=== PATIENT | male | born 1965 | race Caucasian/White ===

== ENCOUNTER 2017-03-31 19:35 | Inpatient (IN) | payer OTHER ==
[~2017-03-31] VITALS: Ht 162.6 cm; Wt 63.6 kg
[2017-03-31 21:10] LABS: MEAN CORPUSCULAR HEMOGLOBIN 33.6 pg (27.0-33.0); MEAN CORPUSCULAR VOLUME 93.3 fl (80.0-96.0); RED CELL DISTRIBUTION WIDTH 12.4 % (11.5-14.5); WHITE BLOOD COUNT 7.8 K/mm3 (4.0-10.0)
[2017-03-31 21:33] LABS: METHADONE URINE NEGATIVE (NEGATIVE)
[2017-03-31 21:43] LABS: ALBUMIN 4.4 GM/DL (3.2-5.2); ALBUMIN/GLOBULIN RATIO 1.47 (1.00-1.93); ALKALINE PHOSPHATASE 88 U/L (45-117); ALT/SGPT 22 U/L (12-78); ANION GAP 6 MEQ/L (8-16); AST/SGOT 20 U/L (15-37); BILIRUBIN,DIRECT 0.1 MG/DL (0.0-0.2); BILIRUBIN,TOTAL 0.6 MG/DL (0.2-1.0); BLOOD UREA NITROGEN 17 MG/DL (7-18); CALCIUM LEVEL 9.3 MG/DL (8.5-10.1); CARBON DIOXIDE LEVEL 30 MEQ/L (21-32); CHLORIDE LEVEL 106 MEQ/L (98-107); CREATININE FOR GFR 1.27 MG/DL (0.70-1.30); GLOMERULAR FILTRATION RATE > 60.0 (>56); GLUCOSE, FASTING 99 MG/DL (70-105); POTASSIUM SERUM 4.7 MEQ/L (3.5-5.1); SODIUM LEVEL 142 MEQ/L (136-145); TOTAL PROTEIN 7.4 GM/DL (6.4-8.2)
[2017-03-31] MEDS ORDERED: ALBU17IN INH (23:45)
[2017-03-31] MEDS ORDERED: SYMB16INH INH (23:45)
[2017-04-01] MEDS ORDERED: ACETAMINOPHEN TAB 650MG DOSE (2X325MG) PO PRN (03:00)
[2017-04-01] MEDS ORDERED: MOM 30ML SUSPENSION UDC PO PRN (03:00)
[2017-04-01] MEDS ORDERED: MAALOX 30 ML SUSP *UDC PO PRN (03:00)
[2017-04-01] MEDS ORDERED: traZODone 50 MG TAB PO PRN (03:00)
[2017-04-01] MEDS ORDERED: ALBUTEROL 90 MCG/ACT 8GM HFA INHALER INH PRN (09:30)
--- NOTE | 2017-04-01 09:35 | HPEPDOC ---
Medical History and Physical Date of Admission Mar 31, 2017 History and Physical PCP: None ATTENDING: Dr. Joseluis Vanegas HPI: 51 yo M admitted to [facility] for unspecified depressive disorder, being medically examined today. Patient states he has had chronic low back pain for several years. He states this is at his baseline. He denies radiating pain down the legs. No weakness, numbness, or tingling in lower extremities. He states he does not use any medications for the pain. He uses marijuana daily for pain control. He states he does not feel he needs to see pain management. Denies any fevers, chills, weakness, fatigue, ROSADO, CP, SOB, cough, palpitations , abdominal pain, N/V/D or changes in bowel or bladder habits. PMHx: Chronic low back pain/degenerative disc disease COPD Substance use PSHX: Denies SOCHX: Res[facility] in: [facility] Marital Status: Kids: None Employment: Unemployed Tobacco use: One to 2 packs per day ETOH: Denies Illicit Drugs: Marijuana daily. Denies any other substances. IV Drug Use: Denies Tattoos done unprofessionally: 2 FAMHX: Mother: , COPD Father: , [place] Siblings: One brother one sister Alive, well Children: Denies Unexpected deaths due to medical reasons: None. ROS: As noted in HPI, otherwise 11pt ROS of systems reviewed and unremarkable. PE: GEN: 51 yo M, appears stated age. Thin appearing. No acute distress. Alert and oriented x 3. Pleasant, interactive. HEENT: Normocephalic, atraumatic. Pupils are equal, round, and reactive to light. Extraocular movements are intact. No nystagmus appreciated. Sclera are nonicteric. Conjunctiva without injection. Nose midline. Nasal turbinates without bogginess. EACs both patent BL. TMs both visualized and menendez with good cone of light, no bulging or erythema. No facial asymmetry. Moist mucous membranes. Dentition poor. Pharynx pink and moist, no cobblestoning. Neck supple , trachea midline. No lymphadenopathy or thyromegaly appreciated. CHEST: Regular rate and rhythm, +S1, +S2 LUNGS: Clear to auscultation bilaterally. No wheezes, rales, or rhonchi. Breathing appears symmetric and easy. Patient is speaking in full sentences. No accessory muscle use. ABD: Round, soft, non-tender, non-distended. +Bowel sounds throughout. No rebound or guarding. No costovertebral angle tenderness. EXT: Pulses 2+ bilaterally dorsalis pedis and radial. No lower extremity edema appreciated. SKIN: [place], dry, warm. Capillary refill <2sec. No rashes. NEURO: Alert and oriented x 3. Cranial nerves III-XII are intact. No focal deficits appreciated. EKG: pending. A&P: 51 yo M admitted to [facility] for unspecified depressive disorder 1. Psych. Plan per Psychiatry. Obtain baseline EKG to assure the safety of psychiatric medications as they can prolong the QT interval. 2. Nicotine dependence. Patch available. 3. COPD. Continue Symbicort 2 puffs twice a day. Continue albuterol HFA 2 puffs every 4 hours as needed. 4. Follow up. No Primary Care Provider. Will attempt to establish PCP on discharge. 5. Substance use. Per psychiatry. 6. Chronic low back pain. Patient states his pain is at his baseline level. He states this is chronic. Continue Tylenol 650 mg every 6 hours as needed. Patient does not wish to be placed on any additional medication for his pain. He does not wish to be evaluated through pain management. Outpatient follow-up. 7. History of tattoo done unprofessionally. Patient declines HIV/hepatitis screening at this time. 8. Poor dentition. Patient is not having any issues at this time. Arrange dental provider appointment at discharge. 9. Staff members present throughout exam. Vital Signs Vital Signs Date Time Temp Pulse Resp B/P (MAP) Pulse Ox O2 Delivery O2 Flow Rate FiO2 03/31/17 23:23 98.6 77 18 130/86 (101) 98 Room Air Laboratory Data Labs 24H Laboratory Tests 2 03/31/17 20:58: Anion Gap 6L, Glomerular Filtration Rate > 60.0, Calcium Level 9.3, Aspartate Amino Transf (AST/SGOT) 20, Alanine Aminotransferase (ALT/SGPT) 22, Alkaline Phosphatase 88, Total Bilirubin 0.6, Direct Bilirubin 0.1, Total Protein 7.4, Albumin 4.4, Albumin/Globulin Ratio 1.47, Thyroid Stimulating Hormone (TSH) 1.850, Salicylates Level 3.5L, Acetaminophen Level < 2.0L, Ethyl Alcohol Level < 0.003 03/31/17 20:59: Urine Amphetamines Screen NEGATIVE, Urine Benzodiazepines Screen NEGATIVE, Urine Opiates Screen NEGATIVE, Urine Methadone Screen NEGATIVE, Urine Barbiturates Screen NEGATIVE, Urine Phencyclidine Screen NEGATIVE, Urine Cocaine Metabolite Screen POSITIVEH, Urine Cannabinoids Screen POSITIVEH CBC/BMP Laboratory Tests 03/31/17 20:58 Red Blood Count 4.39, Mean Corpuscular Volume 93.3, Mean Corpuscular Hemoglobin 33.6 H, Mean Corpuscular Hemoglobin Concent 36.0, Red Cell Distribution Width 12.4 Home Medications Scheduled Budesonide/Formoterol (Symbicort 160-4.5 Mcg/Act) 60 Puff/Inhaler Aers, 2 PUFF INH BID Scheduled PRN Albuterol Sulfate (Ventolin Hfa) 200 Puff/8 Gm Aers, 2 PUFF INH Q4H PRN for SHORTNESS OF BREATH Allergies Coded Allergies: No Known Allergies (Unverified , 03/31/17) Emi Romero Apr 01, 2017 09:35
[2017-04-01] MEDS: SYMBICORT 160/4.5MCG INHALER 6GM INH SCH ×2 (11:25→21:22)
--- NOTE | 2017-04-01 14:56 | MHHPE ---
DATE OF ADMISSION: 03/31/2017 DATE OF DICTATION: 04/01/2017 This 52-year-old male states that he has been under a great deal of stress due to his problems with his landlord. He states that he has difficulties with temper and attitude. He states that in the past he was diagnosed with anxiety and bipolar disorder. He is not taking any medications. He is under counseling care by Brian Rascon. He states that he should not be here. Admission was initiated by him being upset with his landlord. He states that he was braiding a line in his backyard and "bitching." His was concerned because she saw on the table he had written something about the only peace is found in . She was concerned that he was putting together a hangman's noose. The patient states that he is trying to move out his house with his and he is on DSS. His has a mental disorder and does take assistance. He states that he had instructed his to withhold rent to their landlord due to the difficulties at his home at [address] [place] [address] and there are concerns about the lack of "building up to code" at the apartment caused his distress. DRUG USE: The patient states that he uses occasional marijuana. MEDICATIONS: The patient states that he has been on BuSpar in the past but was unable to take it. ALCOHOL HISTORY: The patient states that he drinks a few beers. PSYCHIATRIC HISTORY: The patient states that he is treated by Brian Rascon. SUICIDE HISTORY: The patient states that he has never made a suicide attempt. LEGAL HISTORY: The patient was charged with burglary, felony, and was in long-term from 1988 to 1990. MARITAL HISTORY: He states that he has known his for over 9 years, but they have been 9 years. STRESSORS: The patient states that he lost his mother 5 months ago. MENTAL STATUS EXAMINATION: The patient is circumferential in speech and rapid. His thought process is tangential. There are no loose associations. Judgment and insight are poor. He is fully oriented. Recent and remote memory intact. Attention and concentration are intact. No disturbance of language. He has a full fund of knowledge. Mood is irritable. Affect is congruent. IMPRESSION: Bipolar disorder. PLAN: Further information will be gotten from Brian Rascon and the patient's . The patient's insight into bipolar disorder and discussion of past treatment of bipolar disorder seems to not be adequate and we may be unable to engage him in any type of treatment. Further information at this time will be sought after. The patient is presently only taking Symbicort for asthma and albuterol. No other medications at this time. [facility]
[2017-04-01 18:33] VITALS: BP 105/67
--- NOTE | 2017-04-01 19:02 | ECGEPIP ---
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
[2017-04-02 06:50] VITALS: BP 124/74
[2017-04-02] MEDS: SYMBICORT 160/4.5MCG INHALER 6GM INH SCH ×2 (06:55→23:01)
--- NOTE | 2017-04-02 12:27 | MHIPN ---
DATE: 04/02/2017 I met with Kade Ignacio today, as well as meeting with financial planner who spoke with his . Mr Ignacio agrees that he needs more thorough care than he has been getting and also states that his previous use of BuSpar did help him when he had temper difficulties. We have some concerns that the patient is mildly hypomanic and this initiated our request for him to seek outpatient care here in [place]. His girlfriend apparently tells financial planner that he has a history of noncompliance. MENTAL STATUS EXAMINATION: Speech is mildly rapid. Thought process is mildly circumferential. No loose associations. No psychotic thoughts. Judgment and insight are fair. Fully oriented. Recent and remote memory intact. Attention and concentration are normal. No disturbance of language. Full fund of knowledge. Mood is good. Affect is pleasant. Patient admitted that he had minimized how upset he was concerning his present living situation and relationship with [facility]. Patient has placed now on buspirone 20 mg twice a day. DIAGNOSIS: Rule out bipolar II. Generalized anxiety disorder. Marijuana abuse.
[2017-04-02] MEDS: busPIRone 10 MG TAB PO SCH ×2 (13:18→23:00)
[2017-04-02 18:00] VITALS: BP 114/73
[2017-04-03 06:00] VITALS: BP 126/67
[2017-04-03] MEDS ORDERED: BUSP10TA PO (08:12)
[2017-04-03] MEDS: busPIRone 10 MG TAB PO SCH (08:53)
[2017-04-03] MEDS: SYMBICORT 160/4.5MCG INHALER 6GM INH SCH (08:55)
--- NOTE | 2017-04-03 12:21 | MHDS ---
DATE OF ADMISSION: 03/31/2017 DATE OF DISCHARGE: 04/03/2017 This 51-year-old male status he has been under a great deal of stress due to his problems with his landlord. He states he has had difficulties with his temper and attitude. He states in the past he was diagnosed with anxiety and bipolar disorder. He has not taken any medications. He is under counseling care by Brian Rascon that he should not be here. His admission was initiated by him being upset with his landlord and his girlfriend calling due to the fact that he had a note stating that was the only peace. He also was putting together and braiding what appeared to be a hangman's noose. Drug use was noted to be occasional marijuana. MEDICATION HISTORY: The patient states he has been BuSpar in the past but was unable to take it due to financial reasons. PATIENT'S ALCOHOL HISTORY: The patient states he drinks a few beers. PSYCHIATRIC HISTORY: The patient is treated by Brian Rascon in counseling. SUICIDE HISTORY: The patient states he has never made a suicide attempt. 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 The patient states he has been for 9 years. His is a former patient here. Laboratory examinations revealed a slightly low hematocrit of 40.9, MCH 33.6. Serum chemistry was unremarkable and all within normal limits. Toxicology screen was positive for cocaine and cannabinoids. COURSE ON THE UNIT: Patient was cooperative, hyper-talkative and there was some concern that he was demonstrating hypomania. He was started, at his request, on buspirone. He was discharged to outpatient care and encouraged to followup due to at history of being noncompliant. Followup care was arranged by discharge planning at [facility] and suggested that he also look at addiction counseling. DISCHARGE DIAGNOSES: Anxiety disorder. Substance abuse. DISCHARGE MEDICATIONS: Asthma medications: Albuterol inhaler, Symbicort. buspirone 20 mg twice a day. MTDD
[2017-04-03] MEDS ORDERED: SYMB16INH INH (12:34)
== END 2017-04-03 13:15 | disposition home or self-care (01) | DRG 756 ==
LOC: M ED 19:35 → M ED INP 21:53 → M PSY 23:48 → M ED INP 04-01 10:08 → M PSY 04-01 10:10
PROVIDERS: ADMIT Psychiatry & Neurology Psychiatry; ATTEND Psychiatry & Neurology Child & Adolescent Psychiatry
DX: F41.9 Anxiety disorder, unspecified (principal); J44.9 Chronic obstructive pulmonary disease, unspecified; R45.851 Suicidal ideations; F12.10 Cannabis abuse, uncomplicated; M54.5 Low back pain; F17.210 Nicotine dependence, cigarettes, uncomplicated; Z79.899 Other long term (current) drug therapy

== ENCOUNTER 2019-05-03 21:11 | Emergency (ER) | payer OTHER ==
[~2019-05-03] VITALS: Ht 167.6 cm; Wt 61.4 kg
[~2019-05-03 21:11] MED LIST: ALBU17IN INH; BUSP10TA PO; SYMB16INH INH
[2019-05-03] MEDS ORDERED: ASPIRIN 81 MG CHEW TABLET PO ONE (22:00)
[2019-05-03 22:05] LABS: BASO # 0.1 10^3/uL (0.0-0.2); BASO % 0.4 % (0.0-1.0); EOS # 0.2 10^3/uL (0.0-0.5); EOS % 1.6 % (0.0-3.0); HEMATOCRIT 40.7 % (42.0-52.0); HEMOGLOBIN 13.6 g/dl (13.5-17.5); LYMPH # 3.7 10^3/uL (1.5-5.0); LYMPH % 32.3 % (24.0-44.0); MEAN CORPUSCULAR HEMOGLOBIN 31.8 pg (27.0-33.0); MEAN CORPUSCULAR HGB CONC 33.4 g/dl (32.0-36.5); MEAN CORPUSCULAR VOLUME 95.1 fl (80.0-96.0); MONO # 0.8 10^3/uL (0.0-0.8); MONO % 7.3 % (0.0-5.0); NEUTROPHILS # 6.7 10^3/uL (1.5-8.5); NEUTROPHILS % 58.1 % (36.0-66.0); PLATELET COUNT, AUTOMATED 329 10^3/uL (150-450); RED BLOOD COUNT 4.28 10^6/uL (4.30-6.10); WHITE BLOOD COUNT 11.5 10^3/uL (4.0-10.0)
[2019-05-03 22:12] LABS: BLOOD UREA NITROGEN 13 MG/DL (7-18); CALCIUM LEVEL 9.6 MG/DL (8.5-10.1); CARBON DIOXIDE LEVEL 34 MEQ/L (21-32); CHLORIDE LEVEL 104 MEQ/L (98-107); CK-MB VALUE MASS 1.6 NG/ML (<3.6); CPK CREATINE PHOSPHOKINASE 207 U/L (39-308); CREATININE FOR GFR 1.08 MG/DL (0.70-1.30); GLOMERULAR FILTRATION RATE > 60.0 (>56); GLUCOSE, FASTING 73 MG/DL (70-100); MB/CK RELATIVE INDEX 0.77 (< OR =4); SODIUM LEVEL 142 MEQ/L (136-145); TROPONIN I < 0.02 NG/ML (< 0.10)
[2019-05-04 00:07] LABS: CK-MB VALUE MASS 1.4 NG/ML (<3.6); CPK CREATINE PHOSPHOKINASE 209 U/L (39-308); MB/CK RELATIVE INDEX 0.67 (< OR =4); TROPONIN I < 0.02 NG/ML (< 0.10)
[2019-05-04] MEDS ORDERED: ALBU83IN (00:22)
[2019-05-04] MEDS ORDERED: NICOINH (00:22)
[2019-05-04] MEDS ORDERED: STIO1AER INH (00:22)
[2019-05-04] MEDS ORDERED: BUPR150T5 (00:22)
[2019-05-04 00:30] VITALS: BP 94/56
--- NOTE | 2019-05-04 00:59 | ECGEPIP ---
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
--- NOTE | 2019-05-04 03:26 | REP ---
Clinical: Acute chest pain . Comparison: None . Findings: The mediastinum and cardiac silhouette are stable and within normal limits for portable technique. The lung elizabeth demonstrate emphysematous changes without acute consolidation, effusion, or pneumothorax. Skeletal structures are intact. Impression: Chronic emphysematous changes. No acute cardiopulmonary process appreciated. Electronically Signed by Gonzalo Rain MD 05/04/2019 03:17 A
== END 2019-05-04 00:46 | disposition home or self-care (01) ==
LOC: M ED 21:11
DX: F41.1 Generalized anxiety disorder (principal); I45.19 Other right bundle-branch block; J44.9 Chronic obstructive pulmonary disease, unspecified; Z79.899 Other long term (current) drug therapy; F17.210 Nicotine dependence, cigarettes, uncomplicated

== ENCOUNTER → 2019-05-31 | Outpatient (CLI) | payer OTHER ==
[~2019-05-31] MED LIST changes: +ALBU83IN; +BUPR150T5; +NICOINH; +STIO1AER INH
--- NOTE | 2019-05-31 19:46 | REP ---
CT chest without contrast: Low-dose screening exam. History: Nicotine dependence. Comparison is made with portable chest x-ray May 03, 2019. No other chest imaging is available. CT findings: The lungs are rather hyperinflated overall consistent with some degree of COPD. There is mild bronchiectasis in the left upper lobe anterior segment and in the segmental and subsegmental bronchi in the lingula. There is some inflammatory fibrosis versus atelectasis in the lingula and in a small zone anteriorly and medially in the left lower lobe. There are scattered calcified and noncalcified pulmonary nodules in the lung elizabeth bilaterally. The noncalcified nodules measure up to 5 mm in greatest diameter. There are emphysematous changes most pronounced in the upper lobes. No endobronchial lesion is seen. Study is otherwise unremarkable. Impression: Hyperinflation COPD. Areas of bronchiectasis and inflammatory fibrosis and/or atelectasis. Scattered calcified and noncalcified pulmonary nodules. Largest of the noncalcified nodules is 5 mm. Lung BIRADS category II benign appearance. Repeat screening CT study recommended in 1 year. Electronically Signed by Rip Peterson MD 06/01/2019 09:47 A
== END ==
LOC: M RAD 14:40
PROVIDERS: ATTEND Internal Medicine Pulmonary Disease
DX: F17.200 Nicotine dependence, unspecified, uncomplicated (principal)

== ENCOUNTER 2019-06-12 15:48 | Emergency (ER) | payer OTHER ==
[~2019-06-12] VITALS: Ht 170.2 cm; Wt 59.1 kg
[2019-06-12 15:49] VITALS: BP 121/65
[2019-06-12] MEDS ORDERED: ARNU1INH (15:56)
[2019-06-12] MEDS ORDERED: KETOROLAC 30 MG/ML VIAL (J1885) IM ONE (16:45)
[2019-06-12] MEDS ORDERED: NEUR300C PO (16:46)
[2019-06-12] MEDS ORDERED: [UNRECOGNIZED DRUG - SUPPLY] TOP (16:48)
== END 2019-06-12 17:06 | disposition home or self-care (01) ==
LOC: M ED 15:48
DX: M54.5 Low back pain (principal); M54.30 Sciatica, unspecified side; M51.9 Unspecified thoracic, thoracolumbar and lumbosacral intervertebral disc disorder; J45.909 Unspecified asthma, uncomplicated; J44.9 Chronic obstructive pulmonary disease, unspecified; F17.200 Nicotine dependence, unspecified, uncomplicated; Z79.899 Other long term (current) drug therapy
CPT/HCPCS: 96372; 99282; J1885

== ENCOUNTER 2019-07-08 22:41 | Emergency (ER) | payer OTHER ==
[~2019-07-08] VITALS: Ht 165.1 cm; Wt 59.1 kg
[~2019-07-08 22:41] MED LIST changes: +ARNU1INH; +NEUR300C PO; +[UNRECOGNIZED DRUG - SUPPLY] TOP
[2019-07-09 00:38] VITALS: BP 133/75
== END 2019-07-09 00:39 | disposition home or self-care (01) ==
LOC: M ED 22:41
DX: F43.0 Acute stress reaction (principal); J44.9 Chronic obstructive pulmonary disease, unspecified; F17.200 Nicotine dependence, unspecified, uncomplicated; Z79.899 Other long term (current) drug therapy; Z79.51 Long term (current) use of inhaled steroids

== ENCOUNTER → 2020-11-05 | Outpatient (CLI) | payer OTHER ==
[~2020-11-05] MED LIST changes: +ISOVUE-370 76% 100ML VIAL As Ordered ONE
--- NOTE | 2020-11-05 16:02 | REP ---
INDICATION: OTHER NON SPECIFIC ABNORMAL FINDING OF LUNG FIELD. COMPARISON: 06/18/2020 and 05/31/2019 both low-dose screening CT examinations of the lungs TECHNIQUE: Standard helical technique after the intravenous administration of 100 cc Isovue 370 FINDINGS: There is right hilar adenopathy. There is subcarinal adenopathy. There is no justine left hilar adenopathy. There are no pleural or pericardial effusions. The imaged upper abdomen is within normal limits. The imaged osseous structures are within normal limits. Evaluation of the lung elizabeth shows lung field hyperexpansion with numerable asymmetric and nodular densities 2 numerous to count or individually assess. There is a dominant nodule in the medial aspect of the anterior segment of the right upper lobe which abuts the anterior mediastinum in today measures approximately 1.3 cm. Previously, this measured approximately 9 mm in its greatest dimension. The area of pleural irregularity and thickening with spiculations seen in the left posterior basal lower lobe region has gotten thicker and larger. In the right upper lobe the somewhat spiculated area near the pleura laterally is stable. Due to the complexity of the findings I cannot rule out the possibility of new 3 and 4 mm size nodules. There is cylindrical bronchiectasis throughout. IMPRESSION: Markedly advanced chronic changes with nodules as described above. Neoplastic and/or chronic inflammatory changes. Consider CT-PET if clinically relevant. <Electronically signed by Rohith Gimenez > 11/05/20 [id number]
== END ==
LOC: M RAD 14:32
PROVIDERS: ATTEND Internal Medicine Pulmonary Disease
DX: R91.8 Other nonspecific abnormal finding of lung field (principal)
CPT/HCPCS: 71260; Q9967

== ENCOUNTER → 2020-11-21 | Outpatient (CLI) | payer OTHER ==
[~2020-11-21] MED LIST changes: -ISOVUE-370 76% 100ML VIAL As Ordered ONE
[2020-11-21 16:55] LABS: BASO # 0.1 10^3/uL (0.0-0.2); BASO % 0.6 % (0.0-1.0); EOS # 0.3 10^3/uL (0.0-0.5); EOS % 2.9 % (0.0-3.0); HEMATOCRIT 45.1 % (42.0-52.0); HEMOGLOBIN 14.5 g/dl (13.5-17.5); LYMPH # 2.9 10^3/uL (1.5-5.0); LYMPH % 27.2 % (24.0-44.0); MEAN CORPUSCULAR HEMOGLOBIN 30.8 pg (27.0-33.0); MEAN CORPUSCULAR HGB CONC 32.2 g/dl (32.0-36.5); MEAN CORPUSCULAR VOLUME 95.8 fl (80.0-96.0); MONO # 0.9 10^3/uL (0.0-0.8); MONO % 8.1 % (2.0-8.0); NEUTROPHILS # 6.4 10^3/uL (1.5-8.5); NEUTROPHILS % 60.7 % (36.0-66.0); PLATELET COUNT, AUTOMATED 290 10^3/uL (150-450); RED BLOOD COUNT 4.71 10^6/uL (4.30-6.10); WHITE BLOOD COUNT 10.5 10^3/uL (4.0-10.0)
[2020-11-21 17:06] LABS: INR 0.97; PROTHROMBIN TIME 13.1 SECONDS (12.5-14.3)
[2020-11-21 17:07] LABS: PARTIAL THROMBOPLASTIN TIME 30.8 SECONDS (24.2-38.5)
[2020-11-21 17:22] LABS: BLOOD UREA NITROGEN 18 MG/DL (7-18); CALCIUM LEVEL 9.3 MG/DL (8.5-10.1); CARBON DIOXIDE LEVEL 27 MEQ/L (21-32); CHLORIDE LEVEL 107 MEQ/L (98-107); CREATININE FOR GFR 0.82 MG/DL (0.70-1.30); GLOMERULAR FILTRATION RATE > 60.0 (>56); GLUCOSE, FASTING 81 MG/DL (70-100); POTASSIUM SERUM 4.4 MEQ/L (3.5-5.1); SODIUM LEVEL 140 MEQ/L (136-145)
== END ==
LOC: M PLALAB 15:30
PROVIDERS: ATTEND Internal Medicine Pulmonary Disease
DX: J44.9 Chronic obstructive pulmonary disease, unspecified (principal)

== ENCOUNTER → 2020-11-21 | Outpatient (REF) | payer OTHER | LOC: M LAB REF 16:49 | PROVIDERS: ATTEND Internal Medicine Pulmonary Disease | DX: J44.9 Chronic obstructive pulmonary disease, unspecified (principal) ==

== ENCOUNTER → 2020-11-30 | Outpatient (CLI) | payer OTHER | LOC: M LABSMTC 13:21 | PROVIDERS: ATTEND Anesthesiology | DX: Z01.818 Encounter for other preprocedural examination (principal); Z11.52 Encounter for screening for COVID-19 ==

== ENCOUNTER 2020-12-05 06:36 | Day surgery (SDC) | payer OTHER ==
[~2020-12-05] VITALS: Ht 170.2 cm; Wt 51.3 kg
[~2020-12-05 06:36] MED LIST changes: +ALBUTEROL SULFATE 2.5 MG/0.5 ML INH NEB SOLN INH ONE; +LIDOCAINE 1% MDV 20ML VIAL SQ PRN; +LIDOCAINE 4% INJ 5ML AMP INH ONE; +LR 1,000 ML IV ONE
[2020-12-05] MEDS ORDERED: AZIT-12 PO (07:09)
[2020-12-05] MEDS ORDERED: MUCI600T31 PO (07:09)
[2020-12-05] MEDS ORDERED: AMOX500T2 PO (07:09)
[2020-12-05] MEDS ORDERED: EPINEPHrine 1MG/10ML SYRINGE 1.5IN As Ordered ONE (07:17)
[2020-12-05] MEDS ORDERED: LIDOCAINE 1% SDV 30ML VIAL As Ordered ONE (07:17)
[2020-12-05] MEDS ORDERED: CETACAINE SPRAY 5GM As Ordered ONE (07:17)
[2020-12-05] MEDS ORDERED: THROMBIN SOLN 5,000 UNITS VIAL As Ordered ONE (07:17)
[2020-12-05] MEDS ORDERED: propofoL 200 MG/20 ML VIAL As Ordered ONE ×2 (07:18→07:21)
[2020-12-05] MEDS ORDERED: ROCURONIUM BROMIDE 50 MG/5 ML VIAL As Ordered ONE ×2 (07:18→07:21)
[2020-12-05] MEDS ORDERED: ONDANSETRON 4MG/2ML VIAL As Ordered ONE ×2 (07:18→07:22)
[2020-12-05] MEDS ORDERED: LIDOCAINE 2% 100MG/5ML SDV (FOR ANES.) As Ordered ONE ×2 (07:18→07:21)
[2020-12-05] MEDS ORDERED: dexameTHASONE 4 MG/ML 1ML VIAL (J1100 PER 1MG) As Ordered ONE ×2 (07:18→07:22)
[2020-12-05] MEDS ORDERED: fentaNYL 100 MCG/2 ML INJECTION (J3010) As Ordered ONE ×2 (07:19→07:21)
[2020-12-05] MEDS ORDERED: MIDAZOLAM INJ 2MG/2ML VIAL (J2250 PER 1MG) As Ordered ONE ×2 (07:19→07:21)
[2020-12-05] MEDS ORDERED: REMIFENTANIL 1MG 3ML VIAL As Ordered ONE (07:21)
[2020-12-05] MEDS ORDERED: METOCLOPRAMIDE INJ 10MG/2ML VIAL (J2765 PER 1) As Ordered ONE (07:22)
[2020-12-05] MEDS ORDERED: PHENYLephrine 500MCG 5ML (100MCG/ML) SYRINGE As Ordered ONE (08:03)
[2020-12-05] MEDS ORDERED: ACETAMINOPHEN 1000MG 100ML IV BTL (OFIRMEV) (J0131 PER 10MG) As Ordered ONE (08:07)
[2020-12-05] MEDS ORDERED: SUGAMMADEX SODIUM 500 MG/5 ML VIAL (BRIDION) As Ordered ONE (08:27)
[2020-12-05] MEDS ORDERED: oxyCODONE 5MG TAB PO PRN (09:15)
[2020-12-05] MEDS ORDERED: ONDANSETRON 4MG/2ML VIAL IV PRN (09:15)
[2020-12-05] MEDS ORDERED: METOCLOPRAMIDE INJ 10MG/2ML VIAL (J2765 PER 1) IV PRN (09:15)
[2020-12-05] MEDS ORDERED: LR 1,000 ML IV SCH (09:15)
[2020-12-05] MEDS ORDERED: fentaNYL 100 MCG/2 ML INJECTION (J3010) IV PRN (09:15)
--- NOTE | 2020-12-05 09:28 | ROOR ---
Patient Name: Kade Ignacio Procedure Date: 12/05/2020 7:28 AM Date of : 1965 Admit Type: Outpatient Age: 55 Note Status: Finalized Attending MD: Loni Manuel MD Procedure: Bronchoscopy Indications: Abnormal CT scan of chest, Diffuse parenchymal lung disease, Hilar/mediastinal abnormality of the right side Providers: Loni Manuel MD (Doctor) Referring MD: None Requesting Physician: Medicines: Lidocaine 4% via nebulizer with Albuterol 2.5 mg, Cetacaine topical, Epinephrine 1 mg/10 mL topical 2 mL, General Anesthesia Complications: No immediate complications. Estimated blood loss: Minimal Procedure: Pre-Anesthesia Assessment: - Prior to the procedure, a History and Physical was performed, and patient medications and allergies were reviewed. The patient's tolerance of previous anesthesia was also reviewed. The risks and benefits of the procedure and the sedation options and risks were discussed with the patient. All questions were answered, and informed consent was obtained. Prior Anticoagulants: The patient has taken no previous anticoagulant or antiplatelet agents. ASA Grade Assessment: II - A patient with mild systemic disease. After reviewing the risks and benefits, the patient was deemed in satisfactory condition to undergo the procedure. - Patient identification and proposed procedure were verified prior to the procedure by the physician, the nurse, the anesthesiologist, the binding printer and the counter intelligence technician. The procedure was verified in the procedure room. The Bronchoscope was introduced through the mouth, via the endotracheal tube (the patient was intubated for the procedure) and advanced to the tracheobronchial tree of both lungs. The procedure was accomplished without difficulty. The patient tolerated the procedure well. Findings: The endotracheal tube is in good position. The visualized portion of the trachea is of normal caliber. The paula is sharp. The tracheobronchial tree was examined to at least the first subsegmental level. Bronchial mucosa and anatomy are normal; there was mucosal pitting and webbing noted, few areas of anthracotic pigmentation. There are no endobronchial lesions, there were some thick white/clear mucoid secretions noted throughout. Percepta brush test was performed prior to start of the robotic bronchoscopy. Rpbotic Electromagnetic navigation bronchoscopy was performed. The CT scan was used for planning purposes. A virtual bronchoscopic image was generated using the planning software. The target in the posterior segment of the right upper lobe was marked. A nodule approx 5-6 mm in size was found and a pathway was created. After a complete airway exam, the Robotic EM navigation phase was then begun to locate the target lesion(s). Brushings of edematous mucosa were obtained in the distal subsegmental branch of the posterior segment of the right upper lobe leading to the target lesion, with a cytology brush and sent for routine cytology. Positioning centrally (in relation to the lesion) was confirmed using the Olympus radial probe US catheter. Transbronchial biopsies of a nodule were performed in the posterior segment of the right upper lobe using forceps and sent for histopathology examination. The procedure was guided by fluoroscopy. Transbronchial biopsy technique was selected because the sampling site was not visible endoscopically. Fluoroscopy guided transbronchial brushings of a nodule were obtained in the posterior segment of the right upper lobe with a micro brush and sent for aerobic culture and anaerobic culture. Transbronchial brushing technique was selected because the sampling site was not accessible using standard endoscopic (bronchoscopic) techniques. Bronchoalveolar lavage was performed in the RUL posterior segment (B2) of the lung and sent for cell count, bacterial culture, and fungal & AFB analysis. The return was blood-tinged. Mucous plugs were present in the return fluid. An endobronchial ultrasound endoscope was utilized in order to assist with fine needle aspiration in the subcarinal area and in the right hilum. Transbronchial needle aspirations of lymph nodes were performed in the subcarinal area and in the right hilum using an Olympus EBUS-TBNA 21 gauge needle and sent for routine cytology. The procedure was guided by ultrasound. Transbronchial needle aspiration technique was selected because the sampling site was not visible endoscopically. Impression: - Abnormal CT scan of chest - Diffuse parenchymal lung disease - Hilar/mediastinal abnormality of the right side - The airway examination was normal. - Electromagnetic navigation bronchoscopy was performed. - Brushings were obtained. - Transbronchial lung biopsies were performed. - Transbronchial brushings were obtained. - Bronchoalveolar lavage was performed. - Endobronchial ultrasound was performed. - A transbronchial needle aspiration was performed. Recommendation: - Await test results. Procedure Code(s): --- Professional --- 65428, Bronchoscopy, rigid or flexible, including fluoroscopic guidance, when performed; with transbronchial needle aspiration biopsy(s), trachea, main stem and/or lobar bronchus(i) 23569, Bronchoscopy, rigid or flexible, including fluoroscopic guidance, when performed; with transbronchial lung biopsy(s), single lobe 28806, Bronchoscopy, rigid or flexible, including fluoroscopic guidance, when performed; with bronchial alveolar lavage 83115, Bronchoscopy, rigid or flexible, including fluoroscopic guidance, when performed; with brushing or protected brushings 51663, Bronchoscopy, rigid or flexible, including fluoroscopic guidance, when performed; with computer-assisted, image-guided navigation (List separately in addition to code for primary procedure[s]) 19374, Bronchoscopy, rigid or flexible, including fluoroscopic guidance, when performed; with transendoscopic endobronchial ultrasound (EBUS) during bronchoscopic diagnostic or therapeutic intervention(s) for peripheral lesion(s) (List separately in addition to code for primary procedure[s]) CPT copyright 2019 [employer]. All rights reserved. The codes documented in this report are preliminary and upon senior talent management consultant review may be revised to meet current compliance requirements. Loni Manuel MD 12/05/2020 9:27:58 AM Number of Addenda: 0 Note Initiated On: 12/05/2020 7:28 AM
--- NOTE | 2020-12-05 09:42 | REP ---
INDICATION: POST BRONCH COMPARISON: 05/03/2019 TECHNIQUE: Portable AP view of the chest FINDINGS: Mediastinum and cardiac silhouette are normal. Diffuse increased interstitial changes suggesting elements of scattered fibrosis and scarring. No obvious focal consolidation, effusion, or pneumothorax. IMPRESSION: Chronic interstitial changes and fibrosis. No obvious acute consolidation, effusion, or pneumothorax. <Electronically signed by Gonzalo Rain > 12/05/20 0938
[2020-12-05 10:09] VITALS: BP 92/54
--- NOTE | 2020-12-05 11:31 | REP ---
INDICATION: OEC FLUOROSCOPY ENB. COMPARISON: Comparison chest CT study November 05, 2020.. TECHNIQUE: Twenty two views. 2 minutes 9 seconds of fluoroscopy time is reported. FINDINGS: A sequence of 22 last image hold fluoroscopically obtained spot radiographs of the chest document bronchoscopic manipulation. IMPRESSION: Procedural imaging. <Electronically signed by Buster Peterson > 12/05/20 1120
--- NOTE | 2020-12-06 16:56 | ECGEPIP ---
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
== END 2020-12-05 10:32 | disposition home or self-care (01) ==
LOC: M SDC 06:36
PROVIDERS: ATTEND Internal Medicine Pulmonary Disease
DX: J98.4 Other disorders of lung (principal); J44.9 Chronic obstructive pulmonary disease, unspecified; F43.10 Post-traumatic stress disorder, unspecified; F17.218 Nicotine dependence, cigarettes, with other nicotine-induced disorders; F31.9 Bipolar disorder, unspecified; F25.9 Schizoaffective disorder, unspecified; Z79.51 Long term (current) use of inhaled steroids; Z91.013 Allergy to seafood; F12.10 Cannabis abuse, uncomplicated
CPT/HCPCS: 31623; 31624; 31627; 31628; 31629; 31654; 71045; 76000; 87070; 87071; 87102; 87116; 87205; 87206; 88104; 88173; 88305; 93005; J0131; J1100; J2250; J2370; J2405; J3010; S2900

== ENCOUNTER 2021-02-26 17:51 | Emergency (ER) | payer OTHER ==
[~2021-02-26] VITALS: Ht 167.6 cm; Wt 59.1 kg
[~2021-02-26 17:51] MED LIST changes: -ALBUTEROL SULFATE 2.5 MG/0.5 ML INH NEB SOLN INH ONE; +AMOX500T2 PO; +AZIT-12 PO; -LIDOCAINE 1% MDV 20ML VIAL SQ PRN; -LIDOCAINE 4% INJ 5ML AMP INH ONE; -LR 1,000 ML IV ONE; +MUCI600T31 PO
[2021-02-26 17:52] VITALS: BP 102/74
== END 2021-02-26 18:30 | disposition left against medical advice (07) ==
LOC: M ED 17:51
DX: Z53.21 Procedure and treatment not carried out due to patient leaving prior to being seen by health care provider (principal)

== ENCOUNTER → 2021-04-08 | Outpatient (CLI) | payer OTHER ==
--- NOTE | 2021-04-08 15:58 | REP ---
INDICATION: ABN FINDINGS OF LUNG FIELD COMPARISON: Multiple the latest 11/05/2020 TECHNIQUE: Standard helical technique without intravenous contrast FINDINGS: The mediastinum and pulmonary dorina are unchanged. There is adenopathy status quo. No pleural or pericardial effusions have developed. There is no significant change in appearance of the imaged upper abdomen or imaged osseous structures. Evaluation of the lung elizabeht again shows marked scattered reticulonodular densities and asymmetric densities. A large new asymmetric mass has developed in the right upper lobe which measures approximately 3.7 by 2.7 cm. Just inferior to this there is an additional pleural base mass density which measures 4.3 by 2.5 cm. There is partial atelectasis of the lingula seen in conjunction with marked varicoid bronchiectasis and patchy asymmetric lingular densities all representing a change from the prior exam. Scattered areas of cylindrical and varicoid bronchiectatic change is again noted. IMPRESSION: 1. There are advanced chronic lung field changes as described above. 2. New lingular finding as described above suspicious for partial obstructive atelectatic change. 3. New large right upper lobe masses as described above close follow-up is recommended. 4. Adenopathy. 5. Other chronic changes as described above. <Electronically signed by Rohith Gimenez > 04/08/21 [id number]
== END ==
LOC: M PLAIMG 14:35
PROVIDERS: ATTEND Internal Medicine Pulmonary Disease
DX: R91.8 Other nonspecific abnormal finding of lung field (principal)

== ENCOUNTER → 2021-04-11 | Outpatient (REF) | payer OTHER | LOC: M LAB REF 16:58 | PROVIDERS: ATTEND Internal Medicine Pulmonary Disease | DX: R91.8 Other nonspecific abnormal finding of lung field (principal) ==

== ENCOUNTER → 2021-05-22 | Outpatient (CLI) | payer OTHER ==
--- NOTE | 2021-05-22 16:23 | REP ---
INDICATION: ABN FINDINGS OF LUNG FIELD. COMPARISON: CT 04/08/2021, 11/05/2020; low-dose CT 06/18/2020, 05/31/2019. TECHNIQUE: Noncontrast scanning through the chest with coronal and sagittal reconstructions provided. FINDINGS: Compared to 6 weeks ago the hyperinflation and advanced bullous emphysematous changes upper lung zones again seen with further consolidation and infiltrate in the medial aspect of the left upper lung zone suggesting lingular chronic atelectasis and infiltrate cylindrical and saccular bronchiectatic changes are seen there with more confluent consolidation. Confluent irregular masslike densities in the posterior aspect of the right upper lobe are unchanged there is a nodule in the anteromedial aspect right upper lobe unchanged abutting the mediastinal pleura and measuring up to 12 mm on image 31 numerous scattered nodules in the 3-5 mm range seen throughout that the right upper lobe. There are similar fibrotic and inflammatory nodular changes in the superior segment of the right lower lobe there are small nodules in the posterior basal segment of the lower lobe the largest about 5.7 mm unchanged some dependent atelectatic and fibrotic changes in the deep sulcus right lower lobe. Pleural thickening and stranding from the pleura posteriorly in the left lower lobe in deep sulcus again noted and unchanged. Scattered small subpleural nodules in the left lateral base in the 2-3 mm range are again seen. Diffuse cylindrical bronchiectatic changes in the lower lung zones. No effusion. The heart is not enlarged. The aorta has some calcifications but no aneurysm. 11 mm prevascular space node on image 47. There is an 8.6 mm AP window node on image 49. Sub cm right paratracheal and prevascular space nodes are present 13 mm subcarinal node is suggested. Some hilar nodes are present. These are all unchanged no pathologic sized axillary or supraclavicular adenopathy. Bone windows show spine with no new or acute finding. Sternum, manubrium, clavicles, scapulae, AC and glenohumeral joints, humeral heads and visualized ribs grossly intact. The upper abdomen seen in limited fashion without acute finding. IMPRESSION: 1. Advanced COPD and emphysematous changes with cylindrical and saccular bronchiectatic change, progressive collapse and inflammatory consolidation in the medial aspect left upper lung zone likely the lingula, compared to the study 6 weeks ago. There are subpleural nodules both lungs, irregular masslike densities in the right upper lobe which are unchanged and other scattered nodules in the right upper and lower lobe stable. No effusion. 2. No cardiomegaly, pericardial thickening or pericardial effusion. There are some mediastinal nodes of pathologic size which may be reactive. These are unchanged. 3. Bones intact. <Electronically signed by Haris Jewell > 05/22/21 [id number]
== END ==
LOC: M PLAIMG 14:20
PROVIDERS: ATTEND Internal Medicine Pulmonary Disease
DX: R91.8 Other nonspecific abnormal finding of lung field (principal)

== ENCOUNTER 2021-06-24 14:22 | Inpatient (IN) | payer OTHER ==
[~2021-06-24] VITALS: Ht 165.1 cm; Wt 49.0 kg
[2021-06-24] MEDS ORDERED: NS 1,000 ML IV SCH (14:25)
[2021-06-24 15:20] LABS: BASO % 0.1 % (0.0-1.0); EOS % 0.1 % (0.0-3.0); HEMATOCRIT 42.6 % (42.0-52.0); HEMOGLOBIN 14.4 g/dl (13.5-17.5); LYMPH # 0.9 10^3/uL (1.5-5.0); LYMPH % 11.5 % (24.0-44.0); MEAN CORPUSCULAR HEMOGLOBIN 31.9 pg (27.0-33.0); MEAN CORPUSCULAR HGB CONC 33.8 g/dl (32.0-36.5); MEAN CORPUSCULAR VOLUME 94.5 fl (80.0-96.0); MONO # 0.8 10^3/uL (0.0-0.8); MONO % 9.3 % (2.0-8.0); NEUTROPHILS # 6.5 10^3/uL (1.5-8.5); NEUTROPHILS % 78.9 % (36.0-66.0); PLATELET COUNT, AUTOMATED 266 10^3/uL (150-450); RED BLOOD COUNT 4.51 10^6/uL (4.30-6.10); WHITE BLOOD COUNT 8.2 10^3/uL (4.0-10.0)
[2021-06-24 15:40] LABS: ALBUMIN 3.1 GM/DL (3.2-5.2); ALT/SGPT 15 U/L (12-78); BILIRUBIN,DIRECT 0.1 MG/DL (0.0-0.2); BILIRUBIN,TOTAL 0.6 MG/DL (0.2-1.0); LIPASE 26 U/L (73-393); TOTAL PROTEIN 6.5 GM/DL (6.4-8.2)
[2021-06-24 16:22] LABS: BLOOD UREA NITROGEN 28 MG/DL (7-18); CALCIUM LEVEL 9.2 MG/DL (8.5-10.1); CARBON DIOXIDE LEVEL 26 MEQ/L (21-32); CHLORIDE LEVEL 103 MEQ/L (98-107); GLOMERULAR FILTRATION RATE > 60.0 (>56); GLUCOSE, FASTING 116 MG/DL (70-100); POTASSIUM SERUM 4.5 MEQ/L (3.5-5.1); SODIUM LEVEL 137 MEQ/L (136-145)
[2021-06-24] MEDS ORDERED: ISOVUE-370 76% 100ML VIAL As Ordered ONE (16:38)
[2021-06-24] MEDS ORDERED: ARNU1INH3 INH (18:10)
[2021-06-24] MEDS ORDERED: HOME MED LIST COMPLETE! XX SCH (18:10)
[2021-06-24] MEDS ORDERED: ALBU8.5H INH (18:10)
[2021-06-24 18:30] LABS: RSV AMPLIFICATION NEGATIVE (NEGATIVE)
[2021-06-24] MEDS: MORPHINE 2 MG/ML 1ML VIAL (J2270) IV PRN (19:58)
[2021-06-24] MEDS: NS 1,000 ML IV SCH (19:58)
[2021-06-24] MEDS: CIPROFLOXACIN 400 MG in IV 1 EA IV SCH (21:00)
[2021-06-24] MEDS: metroNIDAZOLE 500 MG in IV 1 EA IV SCH (21:41)
[2021-06-24 23:52] VITALS: BP 122/79
[2021-06-25] MEDS: MORPHINE 2 MG/ML 1ML VIAL (J2270) IV PRN ×4 (03:16→17:51)
[2021-06-25] MEDS: NS 1,000 ML IV SCH ×3 (05:10→22:45)
[2021-06-25] MEDS: metroNIDAZOLE 500 MG in IV 1 EA IV SCH (05:14)
[2021-06-25 06:30] VITALS: BP 108/69
[2021-06-25] MEDS: VANCOMYCIN ORAL SOL 250MG/5ML ORAL SYRINGE PO SCH ×4 (06:30→23:43)
[2021-06-25 08:04] LABS: HEMATOCRIT 33.4 % (42.0-52.0); MEAN CORPUSCULAR HEMOGLOBIN 30.8 pg (27.0-33.0); MEAN CORPUSCULAR HGB CONC 33.2 g/dl (32.0-36.5); MEAN CORPUSCULAR VOLUME 92.8 fl (80.0-96.0); PLATELET COUNT, AUTOMATED 209 10^3/uL (150-450)
[2021-06-25 08:11] LABS: HEMOGLOBIN 11.1 g/dl (13.5-17.5)
[2021-06-25 08:14] LABS: INR 1.22; PROTHROMBIN TIME 15.8 SECONDS (12.7-14.5)
[2021-06-25] MEDS: CIPROFLOXACIN 400 MG in IV 1 EA IV SCH (08:28)
[2021-06-25 08:37] LABS: ALBUMIN 2.3 GM/DL (3.2-5.2); ALT/SGPT 11 U/L (12-78); BILIRUBIN,TOTAL 0.4 MG/DL (0.2-1.0); BLOOD UREA NITROGEN 22 MG/DL (7-18); CALCIUM LEVEL 7.8 MG/DL (8.5-10.1); CARBON DIOXIDE LEVEL 22 MEQ/L (21-32); CHLORIDE LEVEL 104 MEQ/L (98-107); CREATININE FOR GFR 0.77 MG/DL (0.70-1.30); GLOMERULAR FILTRATION RATE > 60.0 (>56); GLUCOSE, FASTING 118 MG/DL (70-100); POTASSIUM SERUM 3.9 MEQ/L (3.5-5.1); SODIUM LEVEL 136 MEQ/L (136-145)
[2021-06-25] MEDS: NICOTINE 21MG/24HR 1 EA TRANSDERMAL TD SCH (09:00)
[2021-06-25] MEDS ORDERED: ISOVUE-370 76% 100ML VIAL As Ordered ONE (09:42)
[2021-06-25 14:00] VITALS: BP 102/67
[2021-06-25 22:00] VITALS: BP 112/81
[2021-06-26 05:24] VITALS: BP 118/78
[2021-06-26] MEDS: MORPHINE 2 MG/ML 1ML VIAL (J2270) IV PRN ×4 (05:35→22:25)
[2021-06-26] MEDS: VANCOMYCIN ORAL SOL 250MG/5ML ORAL SYRINGE PO SCH ×4 (05:35→23:07)
[2021-06-26] MEDS: HEPARIN SOD (PORCINE) 5000UNITS/ML 1ML VIAL/SYRINGE SQ SCH ×3 (05:36→21:20)
[2021-06-26 07:27] LABS: HEMATOCRIT 33.7 % (42.0-52.0); HEMOGLOBIN 11.1 g/dl (13.5-17.5); MEAN CORPUSCULAR HEMOGLOBIN 30.8 pg (27.0-33.0); MEAN CORPUSCULAR HGB CONC 32.9 g/dl (32.0-36.5); MEAN CORPUSCULAR VOLUME 93.6 fl (80.0-96.0); PLATELET COUNT, AUTOMATED 223 10^3/uL (150-450); WHITE BLOOD COUNT 10.1 10^3/uL (4.0-10.0)
[2021-06-26 07:50] LABS: ALBUMIN 2.1 GM/DL (3.2-5.2); ALT/SGPT 10 U/L (12-78); BILIRUBIN,TOTAL 0.3 MG/DL (0.2-1.0); BLOOD UREA NITROGEN 22 MG/DL (7-18); CARBON DIOXIDE LEVEL 24 MEQ/L (21-32); CHLORIDE LEVEL 105 MEQ/L (98-107); CREATININE FOR GFR 0.64 MG/DL (0.70-1.30); GLOMERULAR FILTRATION RATE > 60.0 (>56); GLUCOSE, FASTING 93 MG/DL (70-100); POTASSIUM SERUM 3.9 MEQ/L (3.5-5.1); SODIUM LEVEL 138 MEQ/L (136-145); TOTAL PROTEIN 4.7 GM/DL (6.4-8.2)
[2021-06-26] MEDS: NICOTINE 21MG/24HR 1 EA TRANSDERMAL TD SCH (09:00)
[2021-06-26] MEDS: NS 1,000 ML IV SCH ×2 (10:48→18:09)
[2021-06-26 14:00] VITALS: BP 118/79
[2021-06-26 22:00] VITALS: BP 125/83
[2021-06-27] MEDS ORDERED: MORPHINE 2 MG/ML 1ML VIAL (J2270) As Ordered ONE (02:24)
[2021-06-27] MEDS: NS 1,000 ML IV SCH ×2 (02:37→10:40)
[2021-06-27 05:57] LABS: HEMATOCRIT 34.3 % (42.0-52.0); HEMOGLOBIN 11.4 g/dl (13.5-17.5); MEAN CORPUSCULAR HEMOGLOBIN 31.4 pg (27.0-33.0); MEAN CORPUSCULAR HGB CONC 33.2 g/dl (32.0-36.5); MEAN CORPUSCULAR VOLUME 94.5 fl (80.0-96.0); PLATELET COUNT, AUTOMATED 249 10^3/uL (150-450); RED BLOOD COUNT 3.63 10^6/uL (4.30-6.10); WHITE BLOOD COUNT 9.4 10^3/uL (4.0-10.0)
[2021-06-27 06:00] VITALS: BP 127/84
[2021-06-27 06:27] LABS: ALT/SGPT 10 U/L (12-78); BILIRUBIN,TOTAL 0.3 MG/DL (0.2-1.0); BLOOD UREA NITROGEN 22 MG/DL (7-18); CALCIUM LEVEL 7.9 MG/DL (8.5-10.1); CARBON DIOXIDE LEVEL 22 MEQ/L (21-32); CHLORIDE LEVEL 111 MEQ/L (98-107); CREATININE FOR GFR 0.54 MG/DL (0.70-1.30); GLOMERULAR FILTRATION RATE > 60.0 (>56); GLUCOSE, FASTING 87 MG/DL (70-100); POTASSIUM SERUM 3.8 MEQ/L (3.5-5.1); SODIUM LEVEL 141 MEQ/L (136-145); TOTAL PROTEIN 4.5 GM/DL (6.4-8.2)
[2021-06-27] MEDS: VANCOMYCIN ORAL SOL 250MG/5ML ORAL SYRINGE PO SCH ×3 (06:33→18:44)
[2021-06-27] MEDS: HEPARIN SOD (PORCINE) 5000UNITS/ML 1ML VIAL/SYRINGE SQ SCH (06:33)
[2021-06-27] MEDS: MORPHINE 2 MG/ML 1ML VIAL (J2270) IV PRN ×4 (06:34→18:44)
[2021-06-27] MEDS: NICOTINE 21MG/24HR 1 EA TRANSDERMAL TD SCH (09:00)
[2021-06-27] MEDS ORDERED: MORPHINE 2 MG/ML 1ML VIAL (J2270) IV PRN (11:40)
[2021-06-27 16:30] LABS: HEPATITIS B CORE ANTIBODY IGM NEGATIVE (NEGATIVE); HEPATITIS B SURFACE ANTIGEN NEGATIVE (NEGATIVE); HEPATITIS C VIRUS ABY INDEX 0.1 INDEX (<0.8)
[2021-06-27] MEDS: ALBUTEROL 90 MCG/ACT 8GM HFA INHALER INH PRN (20:09)
[2021-06-27 22:00] VITALS: BP 124/84
[2021-06-28] MEDS: VANCOMYCIN ORAL SOL 250MG/5ML ORAL SYRINGE PO SCH ×3 (00:13→12:52)
[2021-06-28] MEDS: MORPHINE 2 MG/ML 1ML VIAL (J2270) IV PRN ×4 (00:15→14:16)
[2021-06-28 05:31] LABS: HEMATOCRIT 37.5 % (42.0-52.0); HEMOGLOBIN 12.4 g/dl (13.5-17.5); MEAN CORPUSCULAR HEMOGLOBIN 31.3 pg (27.0-33.0); MEAN CORPUSCULAR HGB CONC 33.1 g/dl (32.0-36.5); MEAN CORPUSCULAR VOLUME 94.7 fl (80.0-96.0); PLATELET COUNT, AUTOMATED 309 10^3/uL (150-450); RED BLOOD COUNT 3.96 10^6/uL (4.30-6.10)
[2021-06-28 05:56] LABS: ALT/SGPT 13 U/L (12-78); BILIRUBIN,TOTAL 0.7 MG/DL (0.2-1.0); BLOOD UREA NITROGEN 23 MG/DL (7-18); CALCIUM LEVEL 8.1 MG/DL (8.5-10.1); CARBON DIOXIDE LEVEL 22 MEQ/L (21-32); CHLORIDE LEVEL 109 MEQ/L (98-107); CREATININE FOR GFR 0.54 MG/DL (0.70-1.30); GLOMERULAR FILTRATION RATE > 60.0 (>56); GLUCOSE, FASTING 87 MG/DL (70-100); POTASSIUM SERUM 3.6 MEQ/L (3.5-5.1); SODIUM LEVEL 139 MEQ/L (136-145); TOTAL PROTEIN 4.8 GM/DL (6.4-8.2)
[2021-06-28 06:00] VITALS: BP 131/87
[2021-06-28] MEDS: ALBUTEROL 90 MCG/ACT 8GM HFA INHALER INH PRN (06:18)
[2021-06-28] MEDS: NICOTINE 21MG/24HR 1 EA TRANSDERMAL TD SCH (07:41)
[2021-06-28] MEDS ORDERED: TRAM50TA2 PO (11:39)
[2021-06-28] MEDS ORDERED: FIRV50SO PO (11:39)
[2021-07-08 16:08] LABS: ANTINUCLEAR ANTIBODIES DIRECT Negative (Negative)
== END 2021-06-28 14:23 | disposition home or self-care (01) | DRG 248 ==
LOC: M ED 14:22 → M ED INP 18:29 → ENRESERV 22:57 → M MSPAV 23:40
PROVIDERS: ADMIT Internal Medicine; ATTEND Internal Medicine
DX: A04.72 Enterocolitis due to Clostridium difficile, not specified as recurrent (principal); R18.8 Other ascites; J44.9 Chronic obstructive pulmonary disease, unspecified; R63.4 Abnormal weight loss; D18.03 Hemangioma of intra-abdominal structures; R91.8 Other nonspecific abnormal finding of lung field; M51.36 Other intervertebral disc degeneration, lumbar region; F43.10 Post-traumatic stress disorder, unspecified; F25.0 Schizoaffective disorder, bipolar type; F17.200 Nicotine dependence, unspecified, uncomplicated; F12.90 Cannabis use, unspecified, uncomplicated; Z79.899 Other long term (current) drug therapy; Z91.013 Allergy to seafood

== ENCOUNTER 2021-07-01 11:48 | Observation (INO) | payer OTHER ==
[~2021-07-01] VITALS: Ht 165.1 cm; Wt 52.9 kg
[~2021-07-01 11:48] MED LIST changes: +ALBU8.5H INH; +ARNU1INH3 INH; +FIRV50SO PO; +TRAM50TA2 PO
[2021-07-01 12:57] LABS: BASO # 0.1 10^3/uL (0.0-0.2); BASO % 0.5 % (0.0-1.0); EOS # 0.2 10^3/uL (0.0-0.5); EOS % 1.8 % (0.0-3.0); HEMATOCRIT 37.8 % (42.0-52.0); HEMOGLOBIN 12.7 g/dl (13.5-17.5); LYMPH # 2.8 10^3/uL (1.5-5.0); LYMPH % 22.6 % (24.0-44.0); MEAN CORPUSCULAR HEMOGLOBIN 31.5 pg (27.0-33.0); MEAN CORPUSCULAR HGB CONC 33.6 g/dl (32.0-36.5); MEAN CORPUSCULAR VOLUME 93.8 fl (80.0-96.0); MONO # 1.2 10^3/uL (0.0-0.8); MONO % 9.7 % (2.0-8.0); NEUTROPHILS # 7.7 10^3/uL (1.5-8.5); NEUTROPHILS % 61.8 % (36.0-66.0); PLATELET COUNT, AUTOMATED 414 10^3/uL (150-450); RED BLOOD COUNT 4.03 10^6/uL (4.30-6.10); WHITE BLOOD COUNT 12.5 10^3/uL (4.0-10.0)
[2021-07-01 13:54] LABS: RSV AMPLIFICATION NEGATIVE (NEGATIVE)
[2021-07-01 14:06] LABS: ALBUMIN 2.7 GM/DL (3.2-5.2); ALT/SGPT 27 U/L (12-78); BILIRUBIN,DIRECT < 0.1 MG/DL (0.0-0.2); BILIRUBIN,TOTAL 0.2 MG/DL (0.2-1.0); BLOOD UREA NITROGEN 21 MG/DL (7-18); CALCIUM LEVEL 8.6 MG/DL (8.5-10.1); CARBON DIOXIDE LEVEL 27 MEQ/L (21-32); CHLORIDE LEVEL 110 MEQ/L (98-107); CREATININE FOR GFR 0.65 MG/DL (0.70-1.30); GLOMERULAR FILTRATION RATE > 60.0 (>56); GLUCOSE, FASTING 112 MG/DL (70-100); NT-PRO BNP 3351 PG/ML (<125); POTASSIUM SERUM 3.7 MEQ/L (3.5-5.1); SODIUM LEVEL 141 MEQ/L (136-145); TOTAL PROTEIN 5.2 GM/DL (6.4-8.2)
[2021-07-01] MEDS ORDERED: FIRV50SO PO (15:25)
[2021-07-01] MEDS ORDERED: HOME MED LIST COMPLETE! XX SCH (15:25)
[2021-07-01] MEDS ORDERED: TRAM50TA2 PO (15:25)
[2021-07-01] MEDS ORDERED: ISOVUE-370 76% 100ML VIAL As Ordered ONE (15:31)
[2021-07-01] MEDS ORDERED: ALBUTEROL 90 MCG/ACT 8GM HFA INHALER INH PRN (15:55)
[2021-07-01] MEDS: NICOTINE 14 MG/24 HR TRANSDERMAL TD ONE ×2 (16:37→16:54)
[2021-07-01 17:07] LABS: FREE T4 1.29 NG/DL (0.76-1.46)
[2021-07-01] MEDS: FUROSEMIDE 40MG/4ML VIAL (J1940) IV SCH (18:23)
[2021-07-01] MEDS: VANCOMYCIN ORAL SOL 250MG/5ML ORAL SYRINGE PO SCH (18:23)
[2021-07-01] MEDS: SYMBICORT 160/4.5MCG INHALER 6GM INH SCH (20:00)
[2021-07-01] MEDS ORDERED: FUROSEMIDE 40MG/4ML VIAL (J1940) IV SCH (21:00)
[2021-07-02] MEDS: FUROSEMIDE 40MG/4ML VIAL (J1940) IV SCH ×3 (01:15→21:54)
[2021-07-02] MEDS: VANCOMYCIN ORAL SOL 250MG/5ML ORAL SYRINGE PO SCH ×5 (01:15→23:26)
[2021-07-02 07:35] LABS: HEMATOCRIT 40.5 % (42.0-52.0); HEMOGLOBIN 13.4 g/dl (13.5-17.5); MEAN CORPUSCULAR HEMOGLOBIN 30.8 pg (27.0-33.0); MEAN CORPUSCULAR HGB CONC 33.1 g/dl (32.0-36.5); MEAN CORPUSCULAR VOLUME 93.1 fl (80.0-96.0); PLATELET COUNT, AUTOMATED 428 10^3/uL (150-450); RED BLOOD COUNT 4.35 10^6/uL (4.30-6.10); WHITE BLOOD COUNT 11.8 10^3/uL (4.0-10.0)
[2021-07-02 07:56] LABS: BLOOD UREA NITROGEN 17 MG/DL (7-18); CALCIUM LEVEL 8.3 MG/DL (8.5-10.1); CARBON DIOXIDE LEVEL 30 MEQ/L (21-32); CHLORIDE LEVEL 104 MEQ/L (98-107); CREATININE FOR GFR 0.72 MG/DL (0.70-1.30); GLOMERULAR FILTRATION RATE > 60.0 (>56); GLUCOSE, FASTING 99 MG/DL (70-100); MAGNESIUM LEVEL 2.1 MG/DL (1.8-2.4); PHOSPHORUS LEVEL 3.6 MG/DL (2.5-4.9); POTASSIUM SERUM 3.3 MEQ/L (3.5-5.1); SODIUM LEVEL 140 MEQ/L (136-145)
[2021-07-02] MEDS: SYMBICORT 160/4.5MCG INHALER 6GM INH SCH (08:00)
[2021-07-02] MEDS: ENOXAPARIN 40MG/0.4ML SYRINGE (J1650 PER 10MG) SC SCH (09:34)
[2021-07-02] MEDS ORDERED: POTASSIUM CHLORIDE 10MEQ SR TABLET PO ONE (10:30)
[2021-07-02] MEDS: ACETAMINOPHEN TAB 650MG DOSE (2X325MG) PO PRN (11:27)
[2021-07-02 12:00] VITALS: BP 97/71
[2021-07-02 13:27] VITALS: BP 120/89
[2021-07-02 14:00] VITALS: BP 107/74
[2021-07-02 22:00] VITALS: BP 113/90
[2021-07-03] MEDS: ACETAMINOPHEN TAB 650MG DOSE (2X325MG) PO PRN (04:29)
[2021-07-03] MEDS: VANCOMYCIN ORAL SOL 250MG/5ML ORAL SYRINGE PO SCH ×2 (05:49→12:48)
[2021-07-03 06:00] VITALS: BP 101/72
[2021-07-03 06:01] LABS: BASO % 0.3 % (0.0-1.0); EOS # 0.3 10^3/uL (0.0-0.5); EOS % 2.5 % (0.0-3.0); HEMATOCRIT 33.1 % (42.0-52.0); LYMPH # 2.2 10^3/uL (1.5-5.0); LYMPH % 18.7 % (24.0-44.0); MEAN CORPUSCULAR HEMOGLOBIN 30.9 pg (27.0-33.0); MEAN CORPUSCULAR HGB CONC 33.2 g/dl (32.0-36.5); MONO # 0.8 10^3/uL (0.0-0.8); MONO % 6.3 % (2.0-8.0); NEUTROPHILS # 8.4 10^3/uL (1.5-8.5); NEUTROPHILS % 70.8 % (36.0-66.0); PLATELET COUNT, AUTOMATED 395 10^3/uL (150-450); RED BLOOD COUNT 3.56 10^6/uL (4.30-6.10); WHITE BLOOD COUNT 11.9 10^3/uL (4.0-10.0)
[2021-07-03 06:32] LABS: BLOOD UREA NITROGEN 17 MG/DL (7-18); CALCIUM LEVEL 8.1 MG/DL (8.5-10.1); CARBON DIOXIDE LEVEL 32 MEQ/L (21-32); CHLORIDE LEVEL 104 MEQ/L (98-107); CREATININE FOR GFR 0.76 MG/DL (0.70-1.30); GLOMERULAR FILTRATION RATE > 60.0 (>56); GLUCOSE, FASTING 104 MG/DL (70-100); MAGNESIUM LEVEL 2.1 MG/DL (1.8-2.4); PHOSPHORUS LEVEL 3.5 MG/DL (2.5-4.9); POTASSIUM SERUM 3.7 MEQ/L (3.5-5.1); SODIUM LEVEL 139 MEQ/L (136-145)
[2021-07-03] MEDS ORDERED: STIOLTO RESPIMAT INH SCH (09:00)
[2021-07-03] MEDS ORDERED: ARNUITY ELLIPTA 200 MCG INH SCH (09:00)
[2021-07-03] MEDS: ENOXAPARIN 40MG/0.4ML SYRINGE (J1650 PER 10MG) SC SCH (09:04)
[2021-07-03] MEDS: FUROSEMIDE 40MG/4ML VIAL (J1940) IV SCH (09:06)
[2021-07-03] MEDS ORDERED: FURO20TA2 PO (10:17)
== END 2021-07-03 12:54 | disposition home or self-care (01) ==
LOC: M ED 11:48 → M ED INP 11:49 → ENRESERV 07-02 10:44 → M MSPAV 07-02 11:56
PROVIDERS: ADMIT Internal Medicine; ATTEND Internal Medicine
DX: I50.33 Acute on chronic diastolic (congestive) heart failure (principal); A04.72 Enterocolitis due to Clostridium difficile, not specified as recurrent; R31.9 Hematuria, unspecified; R00.0 Tachycardia, unspecified; J44.9 Chronic obstructive pulmonary disease, unspecified; M51.36 Other intervertebral disc degeneration, lumbar region; F43.10 Post-traumatic stress disorder, unspecified; F31.9 Bipolar disorder, unspecified; F20.9 Schizophrenia, unspecified; K76.9 Liver disease, unspecified; F17.210 Nicotine dependence, cigarettes, uncomplicated; Z79.899 Other long term (current) drug therapy; Z79.2 Long term (current) use of antibiotics; Z79.51 Long term (current) use of inhaled steroids; Z91.013 Allergy to seafood
CPT/HCPCS: 36415; 71045; 74178; 76705; 80048; 80076; 83605; 83735; 83880; 84100; 84439; 84443; 85025; 85027; 87040; 87631; 87798; 93005; 93041; 93970; 94640; 94760; 96374; 96375; 96376; 99285; J1650; J1940; Q9967

== ENCOUNTER → 2021-07-16 | Outpatient (REF) | payer OTHER ==
[~2021-07-16] MED LIST changes: -ARNU1INH3 INH; +ARNU1INH3 PO; +FURO20TA2 PO
== END ==
LOC: M SFHCADAM 14:59
PROVIDERS: ATTEND Physician Assistant Medical
DX: Z53.9 Procedure and treatment not carried out, unspecified reason (principal)

== ENCOUNTER 2021-08-20 20:47 | Inpatient (IN) | payer OTHER ==
[~2021-08-20] VITALS: Ht 165.1 cm; Wt 45.0 kg
[~2021-08-20 20:47] MED LIST changes: +ARNU1INH3 INH; -ARNU1INH3 PO
[2021-08-20 22:16] LABS: BASO % 0.3 % (0.0-1.0); EOS # 0.2 10^3/uL (0.0-0.5); EOS % 1.4 % (0.0-3.0); HEMATOCRIT 35.2 % (42.0-52.0); HEMOGLOBIN 11.9 g/dl (13.5-17.5); LYMPH # 2.3 10^3/uL (1.5-5.0); LYMPH % 19.9 % (24.0-44.0); MEAN CORPUSCULAR HEMOGLOBIN 31.5 pg (27.0-33.0); MEAN CORPUSCULAR HGB CONC 33.8 g/dl (32.0-36.5); MEAN CORPUSCULAR VOLUME 93.1 fl (80.0-96.0); MONO % 8.8 % (2.0-8.0); NEUTROPHILS # 8.1 10^3/uL (1.5-8.5); NEUTROPHILS % 69.3 % (36.0-66.0); PLATELET COUNT, AUTOMATED 291 10^3/uL (150-450); RED BLOOD COUNT 3.78 10^6/uL (4.30-6.10); WHITE BLOOD COUNT 11.8 10^3/uL (4.0-10.0)
[2021-08-20 22:20] LABS: BLOOD UREA NITROGEN 22 MG/DL (7-18); CARBON DIOXIDE LEVEL 26 MEQ/L (21-32); CHLORIDE LEVEL 105 MEQ/L (98-107); CREATININE FOR GFR 0.68 MG/DL (0.70-1.30); GLOMERULAR FILTRATION RATE > 60.0 (>56); GLUCOSE, FASTING 105 MG/DL (70-100); POTASSIUM SERUM 4.2 MEQ/L (3.5-5.1); SODIUM LEVEL 137 MEQ/L (136-145)
[2021-08-20 22:23] LABS: CK-MB VALUE MASS 1.7 NG/ML (<3.6); MB/CK RELATIVE INDEX 1.67 (< OR =4)
[2021-08-20 23:48] LABS: NT-PRO BNP 2512 PG/ML (<125)
[2021-08-21] MEDS ORDERED: BUSP10TA PO (01:18)
[2021-08-21] MEDS ORDERED: HOME MED LIST COMPLETE! XX SCH (01:20)
[2021-08-21 01:27] LABS: PROTHROMBIN TIME 13.6 SECONDS (12.7-14.5)
[2021-08-21 01:28] LABS: PARTIAL THROMBOPLASTIN TIME 34.3 SECONDS (25.9-37.0)
[2021-08-21] MEDS ORDERED: ISOVUE-370 76% 100ML VIAL As Ordered ONE (02:31)
[2021-08-21] MEDS ORDERED: ALBUTEROL 90 MCG/ACT 8GM HFA INHALER INH PRN (03:00)
[2021-08-21] MEDS ORDERED: AZITHROMYCIN INJ 500 MG, VIAL MATE ADAPTER 1 EACH in NS 250 ML IV SCH (04:00)
[2021-08-21] MEDS: LEVALBUTEROL 1.25 MG/0.5 ML CONCENTRATE NEB INH SCH ×4 (04:07→17:19)
[2021-08-21 06:55] LABS: VENOUS BASE EXCESS -0.4 (-2.0-2.0); VENOUS HCO3 23.5 MEQ/L (23.0-27.0); VENOUS PARTIAL PRESSURE CO2 35.9 mmHg (38.0-50.0); VENOUS PARTIAL PRESSURE O2 90.2 mmHg (30.0-50.0); VENOUS PH 7.433 UNITS (7.330-7.430); VENOUS STANDARD HCO3 24.1 MEQ/L; VENOUS TOTAL CO2 24.6 MEQ/L (24.0-28.0)
[2021-08-21 07:00] LABS: BASO % 0.2 % (0.0-1.0); EOS # 0.1 10^3/uL (0.0-0.5); EOS % 1.1 % (0.0-3.0); HEMATOCRIT 34.7 % (42.0-52.0); HEMOGLOBIN 11.4 g/dl (13.5-17.5); LYMPH # 2.2 10^3/uL (1.5-5.0); LYMPH % 20.6 % (24.0-44.0); MEAN CORPUSCULAR HEMOGLOBIN 30.9 pg (27.0-33.0); MEAN CORPUSCULAR HGB CONC 32.9 g/dl (32.0-36.5); MONO # 1.1 10^3/uL (0.0-0.8); MONO % 10.1 % (2.0-8.0); NEUTROPHILS # 7.1 10^3/uL (1.5-8.5); NEUTROPHILS % 67.6 % (36.0-66.0); PLATELET COUNT, AUTOMATED 265 10^3/uL (150-450); RED BLOOD COUNT 3.69 10^6/uL (4.30-6.10); WHITE BLOOD COUNT 10.4 10^3/uL (4.0-10.0)
[2021-08-21 07:23] LABS: ALBUMIN 2.7 GM/DL (3.2-5.2); ALT/SGPT 10 U/L (12-78); BILIRUBIN,TOTAL 0.2 MG/DL (0.2-1.0); BLOOD UREA NITROGEN 21 MG/DL (7-18); C REACTIVE PROTEIN QUANTITATIV 7.16 MG/DL (0.00-0.30); CALCIUM LEVEL 8.5 MG/DL (8.5-10.1); CARBON DIOXIDE LEVEL 24 MEQ/L (21-32); CHLORIDE LEVEL 108 MEQ/L (98-107); CREATININE FOR GFR 0.67 MG/DL (0.70-1.30); GLOMERULAR FILTRATION RATE > 60.0 (>56); GLUCOSE, FASTING 124 MG/DL (70-100); LIPASE 68 U/L (73-393); SODIUM LEVEL 139 MEQ/L (136-145); TOTAL PROTEIN 6.2 GM/DL (6.4-8.2)
[2021-08-21] MEDS: SYMBICORT 160/4.5MCG INHALER 6GM INH SCH ×2 (08:00→17:19)
[2021-08-21] MEDS: IPRATROPIUM 0.02% SOLN 0.5MG 2.5ML NEB INH SCH ×3 (08:22→17:19)
[2021-08-21] MEDS: busPIRone 10 MG TAB PO SCH ×2 (08:51→22:22)
[2021-08-21] MEDS: ENOXAPARIN 40MG/0.4ML SYRINGE (J1650 PER 10MG) SC SCH (08:51)
[2021-08-21] MEDS: guaiFENesin ER 600 MG TAB PO SCH ×2 (08:51→22:22)
[2021-08-21] MEDS ORDERED: FUROSEMIDE 20MG/2ML VIAL (J1940) IV SCH (09:00)
[2021-08-21] MEDS: LevoFLOXacin IV 750 MG in IV 1 EA IV SCH (10:30)
[2021-08-21] MEDS: NS 1,000 ML IV SCH (14:30)
[2021-08-21] MEDS ORDERED: hydrOXYzine 50 MG TAB PO STA (18:44)
[2021-08-21 21:40] VITALS: O2SAT 96
[2021-08-21 21:45] VITALS: BP 121/77
[2021-08-22] MEDS: LEVALBUTEROL 1.25 MG/0.5 ML CONCENTRATE NEB INH SCH ×3 (02:29→13:13)
[2021-08-22] MEDS: IPRATROPIUM 0.02% SOLN 0.5MG 2.5ML NEB INH SCH ×3 (02:29→13:13)
[2021-08-22] MEDS: NS 1,000 ML IV SCH (02:33)
[2021-08-22] MEDS ORDERED: BENZONATATE 100MG CAPSULE PO PRN (05:45)
[2021-08-22] MEDS ORDERED: guaiFENesin/CODEINE SYRUP 5 ML UDC PO PRN (05:45)
[2021-08-22 06:00] VITALS: BP 116/72
[2021-08-22 06:24] LABS: BASO % 0.4 % (0.0-1.0); EOS # 0.2 10^3/uL (0.0-0.5); EOS % 2.8 % (0.0-3.0); HEMATOCRIT 33.5 % (42.0-52.0); HEMOGLOBIN 10.9 g/dl (13.5-17.5); LYMPH # 1.6 10^3/uL (1.5-5.0); LYMPH % 21.5 % (24.0-44.0); MEAN CORPUSCULAR HEMOGLOBIN 30.8 pg (27.0-33.0); MEAN CORPUSCULAR HGB CONC 32.5 g/dl (32.0-36.5); MEAN CORPUSCULAR VOLUME 94.6 fl (80.0-96.0); MONO # 0.9 10^3/uL (0.0-0.8); MONO % 11.6 % (2.0-8.0); NEUTROPHILS # 4.8 10^3/uL (1.5-8.5); NEUTROPHILS % 63.3 % (36.0-66.0); PLATELET COUNT, AUTOMATED 266 10^3/uL (150-450); RED BLOOD COUNT 3.54 10^6/uL (4.30-6.10); WHITE BLOOD COUNT 7.5 10^3/uL (4.0-10.0)
[2021-08-22 06:54] LABS: ALBUMIN 2.6 GM/DL (3.2-5.2); ALT/SGPT 12 U/L (12-78); BILIRUBIN,TOTAL 0.3 MG/DL (0.2-1.0); BLOOD UREA NITROGEN 19 MG/DL (7-18); CALCIUM LEVEL 8.5 MG/DL (8.5-10.1); CARBON DIOXIDE LEVEL 23 MEQ/L (21-32); CHLORIDE LEVEL 106 MEQ/L (98-107); CREATININE FOR GFR 0.62 MG/DL (0.70-1.30); GLOMERULAR FILTRATION RATE > 60.0 (>56); GLUCOSE, FASTING 104 MG/DL (70-100); POTASSIUM SERUM 3.9 MEQ/L (3.5-5.1); SODIUM LEVEL 137 MEQ/L (136-145); TOTAL PROTEIN 6.1 GM/DL (6.4-8.2)
[2021-08-22] MEDS: SYMBICORT 160/4.5MCG INHALER 6GM INH SCH (07:15)
[2021-08-22] MEDS: busPIRone 10 MG TAB PO SCH (09:24)
[2021-08-22] MEDS: LevoFLOXacin IV 750 MG in IV 1 EA IV SCH (09:24)
[2021-08-22] MEDS: guaiFENesin ER 600 MG TAB PO SCH (09:24)
[2021-08-22] MEDS: ENOXAPARIN 40MG/0.4ML SYRINGE (J1650 PER 10MG) SC SCH (09:24)
[2021-08-22 10:54] VITALS: O2SAT 95
[2021-08-22] MEDS ORDERED: LEVO750T13 PO (12:15)
== END 2021-08-22 14:28 | disposition home or self-care (01) | DRG 139 ==
LOC: M ED 20:47 → M ED INP 08-21 00:41 → M MSPAV 08-21 21:40
PROVIDERS: ADMIT Family Medicine; ATTEND Internal Medicine
DX: J18.9 Pneumonia, unspecified organism (principal); J44.0 Chronic obstructive pulmonary disease with (acute) lower respiratory infection; I50.33 Acute on chronic diastolic (congestive) heart failure; F03.90 Unspecified dementia, unspecified severity, without behavioral disturbance, psychotic disturbance, mood disturbance, and anxiety; F25.9 Schizoaffective disorder, unspecified; J44.1 Chronic obstructive pulmonary disease with (acute) exacerbation; F17.200 Nicotine dependence, unspecified, uncomplicated; R91.8 Other nonspecific abnormal finding of lung field; F43.10 Post-traumatic stress disorder, unspecified; M51.36 Other intervertebral disc degeneration, lumbar region; G47.30 Sleep apnea, unspecified; Z91.013 Allergy to seafood; Z79.899 Other long term (current) drug therapy

== ENCOUNTER 2021-09-03 22:35 | Emergency (ER) | payer OTHER ==
[~2021-09-03] VITALS: Ht 175.3 cm; Wt 65.0 kg
[~2021-09-03 22:35] MED LIST changes: +LEVO750T13 PO
== END 2021-09-03 23:13 | disposition left against medical advice (07) ==
LOC: M ED 22:35 → EDBD 22:35 → M ED 23:13
DX: Z53.21 Procedure and treatment not carried out due to patient leaving prior to being seen by health care provider (principal)

== ENCOUNTER → 2021-10-22 | Outpatient (REF) | payer OTHER ==
[~2021-10-22] MED LIST changes: +BUPR-71; -BUPR150T5
== END ==
LOC: M LAB REF 17:07
PROVIDERS: ATTEND Internal Medicine Pulmonary Disease
DX: R91.8 Other nonspecific abnormal finding of lung field (principal)

== ENCOUNTER → 2021-11-04 | Outpatient (CLI) | payer OTHER | LOC: M PLARAD 15:50 | PROVIDERS: ATTEND Internal Medicine Pulmonary Disease | DX: R91.8 Other nonspecific abnormal finding of lung field (principal) | CPT/HCPCS: 78815; A9552 ==

== ENCOUNTER 2021-11-19 11:58 | Emergency (ER) | payer OTHER ==
[~2021-11-19] VITALS: Ht 165.1 cm; Wt 45.5 kg
[2021-11-19 13:40] LABS: BLOOD UREA NITROGEN 21 MG/DL (7-18); C REACTIVE PROTEIN QUANTITATIV 0.83 MG/DL (0.00-0.30); CALCIUM LEVEL 9.3 MG/DL (8.5-10.1); CARBON DIOXIDE LEVEL 30 MEQ/L (21-32); CHLORIDE LEVEL 109 MEQ/L (98-107); CREATININE FOR GFR 0.82 MG/DL (0.70-1.30); GLOMERULAR FILTRATION RATE > 60.0 (>56); GLUCOSE, FASTING 74 MG/DL (70-100); POTASSIUM SERUM 4.3 MEQ/L (3.5-5.1); SODIUM LEVEL 140 MEQ/L (136-145)
[2021-11-19 13:41] LABS: BASO # 0.1 10^3/uL (0.0-0.2); BASO % 0.7 % (0.0-1.0); EOS # 0.2 10^3/uL (0.0-0.5); EOS % 2.6 % (0.0-3.0); HEMATOCRIT 39.6 % (42.0-52.0); HEMOGLOBIN 12.9 g/dl (13.5-17.5); LYMPH # 2.6 10^3/uL (1.5-5.0); LYMPH % 35.3 % (24.0-44.0); MEAN CORPUSCULAR HEMOGLOBIN 30.9 pg (27.0-33.0); MEAN CORPUSCULAR HGB CONC 32.6 g/dl (32.0-36.5); MONO # 0.7 10^3/uL (0.0-0.8); MONO % 9.3 % (2.0-8.0); NEUTROPHILS # 3.8 10^3/uL (1.5-8.5); NEUTROPHILS % 51.8 % (36.0-66.0); PLATELET COUNT, AUTOMATED 361 10^3/uL (150-450); RED BLOOD COUNT 4.17 10^6/uL (4.30-6.10); WHITE BLOOD COUNT 7.3 10^3/uL (4.0-10.0)
[2021-11-19] MEDS ORDERED: PROHANCE 279.3MG/ML 5ML VIAL As Ordered ONE (17:32)
[2021-11-19] MEDS ORDERED: ALBU83IN INH (20:19)
[2021-11-19] MEDS ORDERED: HOME MED LIST COMPLETE! XX SCH (20:20)
[2021-11-19 20:30] VITALS: BP 121/81
== END 2021-11-19 21:03 | disposition left against medical advice (07) ==
LOC: M ED 11:58
DX: H49.21 Sixth [abducent] nerve palsy, right eye (principal); J44.9 Chronic obstructive pulmonary disease, unspecified; I50.9 Heart failure, unspecified; F17.200 Nicotine dependence, unspecified, uncomplicated; Z91.013 Allergy to seafood; Z53.20 Procedure and treatment not carried out because of patient's decision for unspecified reasons
CPT/HCPCS: 36415; 70450; 70553; 71045; 80048; 85025; 86140; 86618; 93005; 93041; 94760; 99285; A9576

== ENCOUNTER → 2021-11-29 | Outpatient (CLI) | payer OTHER ==
[~2021-11-29] MED LIST changes: +ALBU83IN INH
== END ==
LOC: M ONCR 14:02
PROVIDERS: ATTEND General Practice
DX: R91.1 Solitary pulmonary nodule (principal); J44.9 Chronic obstructive pulmonary disease, unspecified; R06.01 Orthopnea; F17.210 Nicotine dependence, cigarettes, uncomplicated; Z79.51 Long term (current) use of inhaled steroids; Z79.899 Other long term (current) drug therapy; Z91.013 Allergy to seafood

== ENCOUNTER → 2021-12-10 | Outpatient (RCR) | payer OTHER ==
[~2021-12-10] MED LIST changes: +ALBU2.5V10; +ALBU2.5V10 INH; -ALBU83IN; -ALBU83IN INH
== END ==
LOC: M ONCR 08:32
PROVIDERS: ATTEND General Practice
DX: C34.12 Malignant neoplasm of upper lobe, left bronchus or lung (principal)

== ENCOUNTER → 2021-12-20 | Outpatient (REF) ==
[2021-12-20 17:34] LABS: COLLAGEN EPINEPHRINE 94 SECONDS (74-162)
== END ==
LOC: M LAB REF 16:51
PROVIDERS: ATTEND Family Medicine
DX: Z00.00 Encounter for general adult medical examination without abnormal findings (principal)

== ENCOUNTER 2022-01-03 15:15 | Outpatient (RCR) | payer OTHER | END 2022-01-09 | LOC: M ONCR 15:15 | PROVIDERS: ATTEND General Practice | DX: C34.12 Malignant neoplasm of upper lobe, left bronchus or lung (principal) ==

== ENCOUNTER → 2022-02-03 | Outpatient (REF) | payer OTHER | LOC: M LAB REF 16:51 | PROVIDERS: ATTEND Internal Medicine Pulmonary Disease | DX: J44.9 Chronic obstructive pulmonary disease, unspecified (principal) ==